=== PATIENT | male | born 1975 | race Caucasian/White ===

== ENCOUNTER 2018-02-14 10:21 | Observation (INO) ==
[2018-02-14] MEDS ORDERED: ONDANSETRON 4 MG/2 ML INJECTION IVP ONE (10:45)
[2018-02-14] MEDS ORDERED: NS 1,000 ML IV ONE (10:45)
[2018-02-14] MEDS: SALINE FLUSH 10ml SYRINGE IVF PRN ×2 (10:46→12:52)
[2018-02-14] MEDS ORDERED: MORPHINE SULFATE 4mg INJECTION IVP ONE (10:47)
--- NOTE | 2018-02-14 11:22 | Emergency Department Report ---
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 Pt has had several weeks of LUQ abdominal 'flickering'. Two days ago, this was accompanied by nausea, vomiting, and several bouts of diarrhea (loose stools). Pt has never had these sx before. Has not tried anything to make them better or worse. While at work today, pt looked so poorly that he was sent home with a co-worker. The co- worker brought him to the ER for evaluation. Pt is an IDDM. He has a PMHx s/f alcoholism (admits to 6 beers daily) and methamphetamine abuse. MD complaint: nausea, vomiting, diarrhea Onset (ago): day(s) Description of Vomiting: food contents Description of Diarrhea: other (loose stools) Associated Abdominal Pain: No Severity: moderate Quality: cramping Consistency: constant Relieving factors: none Exacerbating factors: eating Context: alcohol abuse Associated symptoms: headaches (Intermittently) - Related Data Home Medications Medication Instructions Recorded Confirmed Citalopram [Celexa] 20 mg PO DAILY 07/19/17 02/14/18 HydrOXYzine [Atarax] 25 mg PO TID 07/19/17 02/14/18 Insulin Detemir [Levemir Flextouch] 20 unit SQ HS 07/19/17 02/14/18 Lisinopril [Prinivil] 40 mg PO DAILY 07/19/17 02/14/18 Propranolol HCl 20 mg PO BID 07/19/17 02/14/18 Allergies Allergy/AdvReac Type Severity Reaction Status Date / Time No Known Allergies Allergy Verified 02/14/18 14:18 Review of Systems All systems: reviewed and negative except as stated Gastrointestinal: Reports: as per HPI, nausea, vomiting, diarrhea, other (' flickering' in LUQ). Denies: abdominal pain, constipation, hematemesis, melena , hematochezia Neurological: Reports: as per HPI, headache. Denies: weakness, numbness, paresthesias, confusion, abnormal gait, vertigo PFSH Patient Stated Medical History Hypertension Yes Diabetes Mellitus Type 1 Yes Substance Use Disorder Yes: previous meth - Social History Smoking status: Never smoker Substance use type: does not use Alcohol intake frequency: 3 or more drinks per day Physical Exam - Limitations Limitations: no limitations - General General appearance: alert, in no apparent distress, obese - Head Head exam: atraumatic, normocephalic, normal inspection - Eye Eye exam: Present: PERRL, EOMI, scleral icterus, conjunctival injection. Absent : normal appearance, nystagmus, miosis, mydriasis, periorbital swelling, periorbital tenderness - ENT ENT exam: Present: normal exam, normal oropharynx, mucous membranes moist, normal external ear exam - Neck Neck exam: Present: normal inspection, full ROM, trachea midline. Absent: tenderness, lymphadenopathy - Chest Chest inspection: Present: normal inspection, symmetric chest wall rise. Absent : tenderness, rash - Respiratory Respiratory exam: Present: normal lung sounds bilaterally. Absent: respiratory distress, wheezes, stridor, prolonged expiratory phase, crackles - Cardiovascular Cardiovascular exam: Present: regular rate, normal rhythm, normal heart sounds. Absent: rubs, gallop, clicks - Abdominal Exam Abdominal exam: Present: soft, hyperactive bowel sounds. Absent: distention, tenderness, guarding, rebound, rigidity - Extremities Exam Extremities exam: Present: normal inspection, full ROM, normal capillary refill. Absent: tenderness, pedal edema - Skin Skin exam: Present: warm, dry, intact. Absent: rash - Neurological Exam Neurological exam: Present: alert, oriented X3, CN II-XII intact, normal gait, reflexes normal - Psychiatric Psychiatric exam: Present: flat affect Course - Consultations Consultation #1: hospitalist: Time: 12:37 Vital Signs Temperature 99.8 F 02/14/18 10:26 Pulse Rate 106 H 02/14/18 10:26 Respiratory Rate 20 02/14/18 10:26 Blood Pressure 212/130 H 02/14/18 10:26 Pulse Oximetry 94 02/14/18 10:26 Temperature 100.1 F 02/14/18 13:45 Pulse Rate 111 H 02/14/18 13:45 Respiratory Rate 16 02/14/18 14:57 Blood Pressure 185/119 H 02/14/18 13:45 Pulse Oximetry 96 02/14/18 14:57 Nausea/Vomiting/Diarrhea - MDM Narrative Medical decision making narrative: Pt with chronic alcoholism, elevated lipase, alcoholic hepatitis, steatohepatitis, and LUQ abdominal pain. Discussed case with hospitalist; concern for acute vs chronic pancreatitis or alcoholic hepatitis. Hospitalist will admit for obs and bowel rest. - Differential Diagnosis Likely: traveler's diarrhea, food poisoning, gastroenteritis, drug-induced nausea and vomiting, dehydration - Medical Records Attestation: I reviewed the patient's medical records. - Lab Data Attestation: I reviewed the patient's lab results. Result diagrams: 02/14/18 11:04 02/14/18 11:04 Lab Results 02/14/18 02/14/18 02/14/18 Range/Units 11:04 11:04 11:58 WBC 4.4 L (4.5-11.0) T/MM3 RBC 5.07 (4.50-5.90) M/MM3 Hgb 16.2 (13.5-17.5) GM/DL Hct 45.9 (41-53) % MCV 90.5 (80-100) UM3 MCH 32.0 (26-34) UUG MCHC 35.3 (31-37) GM/DL RDW Std Deviation 41.3 (36.9-50.2) FL Plt Count 64 L (130-400) T/MM3 MPV 11.6 (9.4-12.4) UM3 Immature Gran % (Auto) 0.0 (0.0-0.5) % Neut % (Auto) 76.6 H (33-66) % Lymph % (Auto) 17.7 L (23-45) % [place] % (Auto) 4.8 (0-9.0) % Eos % (Auto) 0.2 (0-4) % Baso % (Auto) 0.7 (0-2) % Neut # (Auto) 3.4 (1.8-7.7) T/MM3 Lymph # (Auto) 0.8 L (1-4.8) T/MM3 [place] # (Auto) 0.2 (0-0.8) T/MM3 Eos # (Auto) 0.0 (0-0.5) T/MM3 Baso # (Auto) 0.0 (0-0.2) T/MM3 Abs Immat Gran (auto) 0.00 (0.00-0.03) T/MM3 VBG pH (7.310-7.410) VBG pCO2 (40.0-52.0) MMHG VBG pO2 (40.0-52.0) MMHG VBG HCO3 (22.0-26.0) MEQ/L VBG Total CO2 (22.0-32.0) MEQ/L VBG O2 Saturation (0.0-100.0) % VBG Base Excess (-5.0-5.0) MMOL/L Turbidity < 20 (0-20) Sodium 143 (134-144) MEQ/L Potassium 3.7 (3.6-5) MEQ/L Chloride 101 (98-107) MEQ/L Carbon Dioxide 23 (22-30) MEQ/L Anion Gap 19 H (5-15) meq/L BUN 9.0 (9-20) MG/DL Creatinine 0.6 L (0.8-1.5) mg/dL GFR Calculation 146 BUN/Creatinine Ratio 15 (6-26) RATIO Glucose 231 H (75-110) MG/DL Calculated Osmolality 281 H (261-280) MOSM/KG Calcium 9.5 (8.4-10.2) MG/DL Total Bilirubin 1.30 (0.20-1.30) MG/DL Icterus Index < 2 (0-7) AST 454 H (17-59) U/L ALT 187 H (1-50) U/L Alkaline Phosphatase 384 H (38-126) U/L Total Protein 8.8 H (6.3-8.2) g/dL Albumin 4.8 (3.5-5.0) g/dL Globulin 4.0 H (2.4-3.6) G/DL Albumin/Globulin Ratio 1.2 (1.1-2.2) RATIO Lipase 431 H (23-300) U/L Specimen Hemolysis < 15 (0-25) Ur Collection Type Urine Color (YELLOW) Urine Clarity Urine pH (5.0-8.0) Ur Specific [place] (1.015-1.025) Urine Protein (NEGATIVE) Urine Glucose (UA) (NEGATIVE) Urine Ketones (NEGATIVE) Urine Occult Blood (NEGATIVE) Urine Nitrate (NEGATIVE) Urine Bilirubin (NEGATIVE) Urine Urobilinogen (NORMAL) EU/DL Ur Leukocyte Esterase (NEGATIVE) Urinalysis Comment Urine Opiates Screen ng/mL Ur Oxycodone Screen ng/mL Urine Methadone Screen ng/mL Ur Propoxyphene Screen ng/mL Ur Barbiturates Screen ng/mL U Tricyclic Antidepress ng/mL Ur Phencyclidine Scrn ng/mL Ur Amphetamines Screen ng/mL U Methamphetamines Scrn ng/mL U Benzodiazepines Scrn ng/mL Urine Cocaine Screen ng/mL U Cannabinoids Screen ng/mL B-Hydroxybutyrate 0.00 (0-0.6) mmol/L 02/14/18 02/14/18 02/14/18 Range/Units 12:00 12:00 12:00 WBC (4.5-11.0) T/MM3 RBC (4.50-5.90) M/MM3 Hgb (13.5-17.5) GM/DL Hct (41-53) % MCV (80-100) UM3 MCH (26-34) UUG MCHC (31-37) GM/DL RDW Std Deviation (36.9-50.2) FL Plt Count (130-400) T/MM3 MPV (9.4-12.4) UM3 Immature Gran % (Auto) (0.0-0.5) % Neut % (Auto) (33-66) % Lymph % (Auto) (23-45) % [place] % (Auto) (0-9.0) % Eos % (Auto) (0-4) % Baso % (Auto) (0-2) % Neut # (Auto) (1.8-7.7) T/MM3 Lymph # (Auto) (1-4.8) T/MM3 [place] # (Auto) (0-0.8) T/MM3 Eos # (Auto) (0-0.5) T/MM3 Baso # (Auto) (0-0.2) T/MM3 Abs Immat Gran (auto) (0.00-0.03) T/MM3 VBG pH 7.436 H (7.310-7.410) VBG pCO2 35.2 L (40.0-52.0) MMHG VBG pO2 85.2 H (40.0-52.0) MMHG VBG HCO3 23.7 (22.0-26.0) MEQ/L VBG Total CO2 24.8 (22.0-32.0) MEQ/L VBG O2 Saturation 96.8 (0.0-100.0) % VBG Base Excess 0.0 (-5.0-5.0) MMOL/L Turbidity (0-20) Sodium (134-144) MEQ/L Potassium (3.6-5) MEQ/L Chloride (98-107) MEQ/L Carbon Dioxide (22-30) MEQ/L Anion Gap (5-15) meq/L BUN (9-20) MG/DL Creatinine (0.8-1.5) mg/dL GFR Calculation BUN/Creatinine Ratio (6-26) RATIO Glucose (75-110) MG/DL Calculated Osmolality (261-280) MOSM/KG Calcium (8.4-10.2) MG/DL Total Bilirubin (0.20-1.30) MG/DL Icterus Index (0-7) AST (17-59) U/L ALT (1-50) U/L Alkaline Phosphatase (38-126) U/L Total Protein (6.3-8.2) g/dL Albumin (3.5-5.0) g/dL Globulin (2.4-3.6) G/DL Albumin/Globulin Ratio (1.1-2.2) RATIO Lipase (23-300) U/L Specimen Hemolysis (0-25) Ur Collection Type Urine, void-cc/notcc Urine Color Yellow (YELLOW) Urine Clarity Clear Urine pH 7.0 (5.0-8.0) Ur Specific [place] 1.010 L (1.015-1.025) Urine Protein Trace A (NEGATIVE) Urine Glucose (UA) Negative (NEGATIVE) Urine Ketones Negative (NEGATIVE) Urine Occult Blood Negative (NEGATIVE) Urine Nitrate Negative (NEGATIVE) Urine Bilirubin Negative (NEGATIVE) Urine Urobilinogen 0.2 (NORMAL) EU/DL Ur Leukocyte Esterase Negative (NEGATIVE) Urinalysis Comment Microscopic not ind. Urine Opiates Screen Negative ng/mL Ur Oxycodone Screen Negative ng/mL Urine Methadone Screen Negative ng/mL Ur Propoxyphene Screen Negative ng/mL Ur Barbiturates Screen Negative ng/mL U Tricyclic Antidepress Negative ng/mL Ur Phencyclidine Scrn Negative ng/mL Ur Amphetamines Screen Negative ng/mL U Methamphetamines Scrn Negative ng/mL U Benzodiazepines Scrn Negative ng/mL Urine Cocaine Screen Negative ng/mL U Cannabinoids Screen Negative ng/mL B-Hydroxybutyrate (0-0.6) mmol/L - Radiology Data Attestation: I reviewed the patient's radiology results. Acute abdomen: IMPRESSION: 1. No acute cardiopulmonary abnormality. 2. No evidence of acute obstruction or free air. CT abd/pelv: Impression: 1. No acute disease process seen in the abdomen or pelvis. 2. Hepatic steatosis. - EKG Data EKG #1 EKG attestation: Yes: I reviewed and interpreted this EKG. EKG shows normal: sinus rhythm, axis, intervals, QRS complexes, ST-T waves Rate: tachycardia Interpretation: normal EKG Disposition Clinical Impression: Steatohepatitis, alcoholic, LUQ abdominal pain, Elevated lipase Abdominal pain Qualifiers: Abdominal location: left upper quadrant Qualified Code(s): R10.12 - Left upper quadrant pain Disposition: To [facility] Condition: Improved - Seen By: physician
--- NOTE | 2018-02-14 11:28 | XRay Report ---
Indication: N/V/D PROCEDURE: PA view of the chest with supine and upright AP views of the abdomen Encounter: Initial Comparison: None FINDINGS: The lungs are clear. There is no abnormal airspace opacity, pleural effusion or pneumothorax identified. The heart size, pulmonary vasculature and mediastinum are within normal limits. There is no free air on the upright view. The bowel gas pattern is nonobstructive and nonspecific. Gas is seen in nondilated small and large bowel to the level of the rectum. Moderate stool is seen throughout the colon. The bony structures are grossly unremarkable. IMPRESSION: 1. No acute cardiopulmonary abnormality. 2. No evidence of acute obstruction or free air. .
[2018-02-14] MEDS ORDERED: IOHEXOL 300mg/ml 100ml INJECTION ONE (11:36)
[2018-02-14] MEDS ORDERED: SALINE FLUSH 10ml SYRINGE ONE (11:37)
--- NOTE | 2018-02-14 12:02 | CT Scan Report ---
Indication: elevated lipase, hepatitis, Left colonic pain ?divertic PROCEDURE: CT abdomen pelvis w con: Encounter: Initial Comparison: None Technique: Axial CT images were performed through the abdomen and pelvis after the administration of intravenous contrast. Coronal and sagittal two-dimensional reformats. Automated Exposure Control and Iterative Reconstruction dose reducing techniques were utilized. Contrast: Omnipaque 300 100 mL Findings: The lung bases are clear. The liver is diffusely fatty infiltrated without enhancing mass or bile duct dilatation. The gallbladder is unremarkable. The spleen shows a small rounded calcification at the medial superior aspect measuring 1 cm in size which could be due to old trauma or granuloma. The pancreas is normal. The adrenal glands and kidneys are normal. Bladder is normal. No abdominal or pelvic lymphadenopathy. Prostate and rectum are normal. No free fluid. No evidence of diverticulosis or diverticulitis. No bowel obstruction. The appendix is gas-filled and normal. Bone windows show bilateral L5 spondylolysis without spondylolisthesis. Impression: 1. No acute disease process seen in the abdomen or pelvis. 2. Hepatic steatosis. .
[2018-02-14] MEDS ORDERED: INSULIN REGULAR, HUMAN 100 UNIT/ML INJECTION IVP ONE (12:34)
[2018-02-14] MEDS ORDERED: SODIUM CHLORIDE CONC 154 MEQ in D10W 1,000 ML IV SCH (12:45)
--- NOTE | 2018-02-14 13:29 | History & Physical Report ---
History of Present Illness Date: 02/14/18 Chief complaint: nausea, vomiting, diarrhea HPI: Efrain Chand is a 42-year-old male who presented to [facility] emergency room today, 02/14/18, for evaluation of 3 days of nausea, vomiting and copious watery diarrhea. He was initially seen at [facility] where he was sent to the ED for further evaluation. He is accompanied by his friend, Zachary, who translates for the patient as he is Stateless speaking. He also complains of left sided abdominal pain, dizziness, generalized weakness and inability to keep anything down at home. He denies any known fevers, chills, chest pain, shortness of breath, dysuria, hematuria or syncope. Upon arrival to the ED, he was noted to have a low grade temperature at 99.8, tachycardia (HR 105) and elevated blood pressure (187/118). He has a known history of hypertension as well as insulin dependent diabetes but denies any current home medications for his hypertension. Labs were obtained and revealed leukopenia (WBC 4.4), thrombocytopenia (Plt 64) and hyperglycemia (Glu 231). Liver enzymes were also elevated (AST 454, ALT 187). He has a history of daily alcohol consumption of 6- 8 beers a day during the week and more on the weekends. History of DTs with alcohol withdrawal in the past though denies a history of seizures with alcohol withdrawal. He also admits to a past history of drug abuse including cocaine and methamphetamine. Review of prior medical records and labs indicates that his abnormal lab values are chronic. Lipase was slightly elevated at 431. CT abdomen/pelvis was obtained and revealed hepatic steatosis with no acute changes. Due to his nausea, vomiting, diarrhea and abdominal pain with elevated liver enzymes, Dr. Adams was contacted and he was admitted into observation status for further evaluation, closely monitoring, IV hydration and treatment. His length of stay is not expected to exceed more than 2 over nights. Review of Systems All systems PM: 10-point ROS was reviewed, no additional remarkable complaints except Review of systems: Limited due to language barrier. - Constitutional Constitutional: Present: malaise, weakness. Absent: chills, fatigue, fever(s) - EENMT Eyes: Absent: blurry vision, change in vision, photophobia Ears: Absent: ear pain Balance: Absent: vertigo, falling to one side Nose: Absent: nosebleeds Mouth/Throat: Present: dry mouth. Absent: sore throat, changes in swallowing - Cardiovascular Cardiovascular: Absent: chest pain, palpitations, syncope, dyspnea on exertion, orthopnea, edema Rhythm: Present: regular rhythm Vascular: Absent: pallor of an extermity, pedal edema, unilateral swelling - Respiratory Respiratory: Absent: cough, dyspnea, hemoptysis, dyspnea on exertion, wheezing - Gastrointestinal Gastrointestinal: Present: abdominal pain (left side), change in bowel habits, diarrhea (copious, watery x 2 today), nausea, vomiting. Absent: hematemesis, hematochezia, melena - Genitourinary Genitourinary: Absent: dysuria, flank pain, hematuria - Musculoskeletal Musculoskeletal: Present: muscle weakness. Absent: back pain, deformity - Integumentary/Breasts Integumentary: Absent: rash - Neurological Neurological: Present: dizziness, weakness. Absent: abnormal gait, confusion, convulsions, focal weakness - Psychiatric Psychiatric: Present: other (Alcohol abuse, polysubstance abuse) - Endocrine Endocrine: Absent: flushing, palpitations - Hematologic/Lymphatic Hematologic/Lymphatic: Absent: easy bruising - Allergic/Immunologic Allergic/Immunologic: Absent: seasonal rhinorrhea Past Medical History Medical History Updates: Hypertension. Insulin dependent diabetes. Alcohol dependency and abuse. Polysubstance abuse. Surgical History: Right lower leg repair. Family History: Patient denies any significant family history. Both his mother (age 68) and father (age 80) are alive and reportedly healthy. 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 Medications Home Medications Medication Instructions Recorded Confirmed Type Citalopram [Celexa] 20 mg PO DAILY 07/19/17 02/14/18 History HydrOXYzine [Atarax] 25 mg PO TID 07/19/17 02/14/18 History Insulin Detemir [Levemir Flextouch] 20 unit SQ HS 07/19/17 02/14/18 History Lisinopril [Prinivil] 40 mg PO DAILY 07/19/17 02/14/18 History Propranolol HCl 20 mg PO BID 07/19/17 02/14/18 History Allergies Allergy/AdvReac Type Severity Reaction Status Date / Time No Known Allergies Allergy Verified 02/14/18 14:18 Exam Vital Signs: Temperature 99.8 F 02/14/18 10:26 Pulse Rate 112 H 02/14/18 12:45 Respiratory Rate 28 H 02/14/18 12:45 Blood Pressure 188/108 H 02/14/18 12:30 Pulse Oximetry 96 02/14/18 12:45 Telemetry Rhythm: Sinus Tachycardia Comments: Patient is seen while awaiting admission in ED. He is accompanied by his friend who translates. Nursing present on exam. - Constitutional Present: no acute distress, well nourished, well developed, obese, cooperative - Routine HEENT Exam Head: Present: normocephalic, atraumatic Eye: Present: PERRL ENT: Present: mucous membranes dry, oropharynx clear - Routine Neck Exam Present: supple, full ROM, trachea midline - Routine Chest/Breast/Axilla Exam Chest wall: Absent: pacemaker - Routine Respiratory Exam Present: CTA bilaterally. Absent: respiratory distress, wheezes - Routine Cardiovascular Exam Present: S1, S2, tachycardia - Routine Abdominal Exam Present: soft, normoactive bowel sounds, non tender, distended. Absent: rebound , guarding - Routine Extremities Exam Present: no edema, full ROM, pulses intact - Routine Back/Spine/Pelvis Exam Back/Spine: Present: full ROM. Absent: vertebral tenderness - Routine Skin Exam Present: dry, warm - Routine Neurological Exam Present: alert, oriented X3, moving all extremities, hearing grossly intact, normal speech - Routine Psychiatric Exam Present: cooperative Results - Labs CBC & Chem 7: 02/14/18 11:04 02/14/18 11:04 Assessment and Plan Assessment and Plan: Assessment: Abdominal pain with nausea, vomiting and diarrhea, acute. Leukopenia, present on admission. Thrombocytopenia, present on admission. Elevated liver enzymes, present on admission. Hepatic steatosis. Hypertension, uncontrolled. Insulin dependent diabetes. Alcohol dependency and abuse. Polysubstance abuse. Plan - 02/14/18: Admit to observation status under the care of Dr. Adams. Patient was given 1L NS in ED. Continue NS with KCL at 125cc/hr for hydration. Given report of copious watery diarrhea without sick contact or recent travel, will check GI panel. Clear liquid diet as tolerated. Zofran as needed for nausea/vomiting. Monitor closely for signs of alcohol withdrawal. Serax 15mg Q4H PRN as well as Ativan as needed for withdrawal symptoms. Initiate folate and thiamine give alcohol history. Continue home Levemir 20 units QHS. Sliding scale insulin as needed. Monitor BGMs closely. Continue home Propranolol 20mg BID. Monitor blood pressure and heart rate closely on telemetry. Leukopenia and thrombocytopenia appear to be chronic per prior labs. Suspect secondary to liver disease from alcohol. Will check acute hepatitis panel now. SCDs for DVT prophylaxis. Upon discharge, patient's care will be returned to his PCP at [facility]. Patient requests to be a FULL CODE. DVT Prophylaxis: SCD's GI Prophylaxis: Protonix Resuscitation Status: Full Code - Time spent with patient Time with patient PN: 50 minutes - Physician Narrative Physician: Ketan Adams MD Narrative: Date: 02/14/18 Time: 1610 Have independently interviewed and examined pt. Chart reviewed. Case discussed with ED Physician and my PA. Care plan developed with my supervision; agree with above. Presents to ED secondary to increased n/v/d x several days. More weak and unsteady. Notes pain to left lower quadrant. Does chronically use ETOH. Placed in OBS for hydration and nausea control. Lungs: clear bilaterally, no crackles or wheezes. CV: tachy, regular AB: soft obese ND, mild tenderness without rebound, BS decreased Plan: OBS. IVF. Zofran prn nausea. IV thiamine and folic acid due to chronic ETOH use. IV Protonix for GI protection from possible ETOH gastritis. Lorazepam and Serax prn ETOH withdraw. Monitor lab. Hospital Course Summary Disclaimer: The visit summary below is not to be considered part of the above Progress Note. Hospital Course: Plan - 02/14/18: Admit to observation status under the care of Dr. Adams. Patient was given 1L NS in ED. Continue NS with KCL at 125cc/hr for hydration. Given report of copious watery diarrhea without sick contact or recent travel, will check GI panel. Clear liquid diet as tolerated. Zofran as needed for nausea/vomiting. Monitor closely for signs of alcohol withdrawal. Serax 15mg Q4H PRN as well as Ativan as needed for withdrawal symptoms. Initiate folate and thiamine give alcohol history. Continue home Levemir 20 units QHS. Sliding scale insulin as needed. Monitor BGMs closely. Continue home Propranolol 20mg BID. Monitor blood pressure and heart rate closely on telemetry. Leukopenia and thrombocytopenia appear to be chronic per prior labs. Suspect secondary to liver disease from alcohol. Will check acute hepatitis panel now. SCDs for DVT prophylaxis. Upon discharge, patient's care will be returned to his PCP at [facility]. Patient requests to be a FULL CODE.
[2018-02-14 13:46] VITALS: BMI 33.6
[2018-02-14] MEDS ORDERED: GLUCOSE ORAL GEL 40% 37.5gm PO PRN (13:54)
[2018-02-14] MEDS ORDERED: INSULIN ASPART 100unit/ml INJECTION SQ PRN (13:54)
[2018-02-14] MEDS ORDERED: ONDANSETRON 4 MG/2 ML INJECTION IVP PRN (13:54)
[2018-02-14] MEDS: NS with KCL 20 mEq 1,000 ML IV SCH ×2 (14:53→23:46)
[2018-02-14] MEDS: FOLIC ACID 5 MG/ML INJECTION IVP SCH (14:54)
[2018-02-14] MEDS: PANTOPRAZOLE 40 MG INJECTION IVP SCH (14:54)
[2018-02-14] MEDS: THIAMINE 100 MG in NS 50 ML IV SCH (14:57)
[2018-02-14] MEDS: OXAZEPAM 15 MG CAPSULE PO PRN (15:10)
[2018-02-14] MEDS ORDERED: INSULIN DETEMIR 100unit/ml INJECTION SQ SCH (21:00)
[2018-02-14] MEDS: PROPRANOLOL 20 MG TABLET PO SCH (21:20)
[2018-02-15 04:57] VITALS: RESP 18
[2018-02-15] MEDS: OXAZEPAM 15 MG CAPSULE PO PRN ×2 (05:06→15:51)
[2018-02-15] MEDS: NS with KCL 20 mEq 1,000 ML IV SCH (07:51)
[2018-02-15 08:39] VITALS: O2SAT 96
[2018-02-15] MEDS ORDERED: CITALOPRAM 20 MG TABLET PO SCH (09:00)
[2018-02-15] MEDS: FOLIC ACID 5 MG/ML INJECTION IVP SCH (10:10)
[2018-02-15] MEDS: PANTOPRAZOLE 40 MG INJECTION IVP SCH (10:11)
[2018-02-15] MEDS: PROPRANOLOL 20 MG TABLET PO SCH (10:12)
[2018-02-15] MEDS: THIAMINE 100 MG in NS 50 ML IV SCH (10:12)
--- NOTE | 2018-02-15 10:20 | Progress Note ---
- Date 02/15/18 Subjective: F/U: abdominal pain, nausea, vomiting. Efrain is seen while sitting up in bed with multiple family members at the bedside. Nursing is present and assists with translations. He reports that he continues to have mild left lower quadrant pain. He denies any current nausea, vomiting or diarrhea. He has been able to tolerate liquids well and has remained afebrile. Labs revealed slight decrease in WBC (WBC 3.8) with persistent thrombocytopenia (Plt 53). Mild hypokalemia noted (K 3.5). Slight improvement in liver enzymes, though they remain elevated as does the lipase at 454. Increase in total bilirubin at 2.70. Objective Vital signs: Temperature 97.9 F 02/15/18 07:21 Pulse Rate 64 02/15/18 07:21 Respiratory Rate 18 02/15/18 07:21 Blood Pressure 148/91 H 02/15/18 07:21 Pulse Oximetry 96 02/15/18 08:38 Rhythm: Normal Sinus Rhythm Height/Weight/BMI: Height 5 ft 6 in Weight 208 lb 5.389 oz Body Mass Index 33.6 Comments: Sitting up in bed with family at the bedside. Nursing translates. - Constitutional Present: no acute distress, well nourished, well developed, obese, cooperative - Routine HEENT Exam Head: Present: normocephalic, atraumatic Eye: Present: PERRL ENT: Present: mucous membranes moist, oropharynx clear - Routine Respiratory Exam Present: CTA bilaterally. Absent: respiratory distress, wheezes - Routine Cardiovascular Exam Present: RRR, S1, S2 - Routine Abdominal Exam Present: soft, distended. Absent: rebound, guarding Comments: Mild left lower quadrant tenderness with palpation. - McBurney's and - Barry's sign. Hypoactive bowel sounds. - Routine Extremities Exam Present: full ROM, pulses intact - Routine Back/Spine/Pelvis Exam Back/Spine: Present: full ROM. Absent: vertebral tenderness - Routine Musculoskeletal Exam Musculoskeletal: Present: moving extremities well - Routine Skin Exam Present: intact, dry, warm Comments: Afebrile. - Routine Neurological Exam Present: alert, moving all extremities, hearing grossly intact, normal speech - Routine Lymphatic Exam Lymphatic: Absent: lymphedema - Routine Psychiatric Exam Present: cooperative Results - Labs CBC & Chem 7: 02/15/18 04:33 02/15/18 04:33 Assessment and Plan Assessment and Plan: Assessment Abdominal pain with nausea, vomiting and diarrhea - resolved Hypokalemia (Not POA) Leukopenia, present on admission. Thrombocytopenia, present on admission. Elevated liver enzymes, present on admission. Hepatic steatosis. Hypertension, uncontrolled. Insulin dependent diabetes. Alcohol dependency and abuse. Hx Polysubstance abuse. Plan Continue to have mild LLQ abdominal pain. Tolerating liquid diet without nausea or vomiting. Lipase remains elevated at 454. Total bilirubin elevated at 2.70. No diarrhea since admission. Awaiting stool culture. Continue NS with KCL at 125cc/hr for hydration. Will give KCl 20 mEq po x 1 dose now for hypokalemia. Diarrhea improved. Given report of copious watery diarrhea prior to admission will check GI panel - pending. Liquid diet as tolerated. Zofran as needed for nausea/vomiting. Patient denies alcohol withdrawal. Continue Serax 15mg Q4H PRN as well as Ativan as needed for withdrawal symptoms. Continue folate and thiamine give alcohol history. Continue home Levemir 20 units QHS. Sliding scale insulin as needed. Monitor BGMs closely. Blood sugars controlled. Continue home Propranolol 20mg BID. Monitor blood pressure and heart rate closely on telemetry. Leukopenia and thrombocytopenia appear to be chronic per prior labs. Suspect secondary to liver disease from alcohol. Acute hepatitis panel pending. SCDs for DVT prophylaxis. DVT Prophylaxis: SCD's GI Prophylaxis: Protonix Resuscitation Status: Full Code - Time spent with patient Time with patient PN: 30 minutes - Physician Narrative Physician: Ketan Adams MD Narrative: Date: 02/15/18 Time: 1440 Have independently interviewed and examined pt with spanish translator. Chart reviewed. Case discussed with CM and my PUBLIC AFFAIRS MANAGER. Care plan developed with my supervision; agree with above. Doing better today. Less ab pain and nausea. Not having diarrhea (not able to run GI panel as stool not liquid). Breathing well. Does feel tired and weak. Slightly shaky. Lungs: clear CV: regular Ab: soft nt MSE: awake alert Plan: Medically stable for discharge to home. Stress importance of not using alcohol. Encouraged intake of liquids. Will have Serax 15mg available every 4 hours for symptoms of withdrawal - advised NOT to use alcohol with Serax. F/U with [facility] in [facility] week. See orders for details. Hospital Course Summary Disclaimer: The visit summary below is not to be considered part of the above Progress Note. Hospital Course: 02/14/18 Admit to observation status under the care of Dr. Adams. Patient was given 1L NS in ED. Continue NS with KCL at 125cc/hr for hydration. Given report of copious watery diarrhea without sick contact or recent travel, will check GI panel. Clear liquid diet as tolerated. Zofran as needed for nausea/vomiting. Monitor closely for signs of alcohol withdrawal. Serax 15mg Q4H PRN as well as Ativan as needed for withdrawal symptoms. Initiate folate and thiamine give alcohol history. Continue home Levemir 20 units QHS. Sliding scale insulin as needed. Monitor BGMs closely. Continue home Propranolol 20mg BID. Monitor blood pressure and heart rate closely on telemetry. Leukopenia and thrombocytopenia appear to be chronic per prior labs. Suspect secondary to liver disease from alcohol. Will check acute hepatitis panel now. SCDs for DVT prophylaxis. Upon discharge, patient's care will be returned to [facility]. Patient requests to be a FULL CODE. 02/15/18 Continue to have mild LLQ abdominal pain. Tolerating liquid diet without nausea or vomiting. Lipase remains elevated at 454. Total bilirubin elevated at 2.70. No diarrhea since admission. Not able to run GI panel as stool not liquid. Continue NS with KCL at 125cc/hr for hydration. Will give KCl 20 mEq po x 1 dose now for hypokalemia. Liquid diet as tolerated. Zofran as needed for nausea/vomiting. Patient denies alcohol withdrawal. Continue Serax 15mg Q4H PRN as well as Ativan as needed for withdrawal symptoms. Leukopenia and thrombocytopenia appear to be chronic per prior labs. Suspect secondary to liver disease from alcohol. Acute hepatitis panel pending. Medically stable for discharge to home. Stress importance of not using alcohol. Encouraged intake of liquids. Will have Serax 15mg available every 4 hours for symptoms of withdrawal - advised NOT to use alcohol with Serax. Encourage AA to help with alcohol avoidance. F/U with [facility] in 1 week. See orders for details.
--- NOTE | 2018-02-15 15:27 | Discharge Summary ---
Discharge Information Date of admission: 02/14/18 12:52 Anticipated date of discharge: 02/15/18 Attending Physician: Ketan Adams MD Primary care physician: Mirna Mcguire Discharge diagnosis Abdominal pain with nausea, vomiting and diarrhea - resolved Associated conditions and complications Hypokalemia (Not POA) Leukopenia, present on admission Thrombocytopenia, present on admission Elevated liver enzymes, present on admission Hepatic steatosis Hypertension, uncontrolled Insulin dependent diabetes Alcohol dependency and abuse Hx Polysubstance abuse Obesity with BMI 33.6 - Laboratory Labs: Admit Lab 02/14/18 11:04 WBC 4.4 L Hgb 16.2 Hct 45.9 MCV 90.5 Plt Count 64 L Neut % (Auto) 76.6 H Lymph % (Auto) 17.7 L Warrick % (Auto) 4.8 Eos % (Auto) 0.2 Baso % (Auto) 0.7 Admit Lab 02/14/18 02/14/18 11:04 11:04 Sodium 143 Potassium 3.7 Chloride 101 Carbon Dioxide 23 Anion Gap 19 H BUN 9.0 Creatinine 0.6 L GFR Calculation 146 BUN/Creatinine Ratio 15 Glucose 231 H Calculated Osmolality 281 H Calcium 9.5 Magnesium 1.8 Total Bilirubin 1.30 Icterus Index < 2 AST 454 H ALT 187 H Alkaline Phosphatase 384 H Total Protein 8.8 H Albumin 4.8 Globulin 4.0 H Albumin/Globulin Ratio 1.2 Lipase 431 H Pending Lab 02/14/18 11:04 Hepatitis A IgM Ab Pending Hep Bs Antigen Pending Hep B Core IgM Ab Pending Hepatitis C Antibody Pending 02/15/18 04:33 02/15/18 04:33 History of Present Illness HPI: Efrain Chand is a 42-year-old male who [place] [facility] [place] today, 02/14/18, for evaluation of 3 days of nausea, vomiting and copious watery diarrhea. He was initially seen at [facility] where he was sent to the ED for further evaluation. He is accompanied by his friend, Zachary, who translates for the patient as he is Montserratian speaking. He also complains of left sided abdominal pain, dizziness, generalized weakness and inability to keep anything down at home. He denies any known fevers, chills, chest pain, shortness of breath, dysuria, hematuria or syncope. Upon arrival to the ED, he was noted to have a low grade temperature at 99.8, tachycardia (HR 105) and elevated blood pressure (187/118). He has a known history of hypertension as well as insulin dependent diabetes but denies any current home medications for his hypertension. Labs were obtained and revealed leukopenia (WBC 4.4), thrombocytopenia (Plt 64) and hyperglycemia (Glu 231). Liver enzymes were also elevated (AST 454, ALT 187). He has a history of daily alcohol consumption of 6- 8 beers a day during the week and more on the weekends. History of DTs with alcohol withdrawal in the past though denies a history of seizures with alcohol withdrawal. He also admits to a past history of drug abuse including cocaine and methamphetamine. Review of prior medical records and labs indicates that his abnormal lab values are chronic. Lipase was slightly elevated at 431. CT abdomen/pelvis was obtained and revealed hepatic steatosis with no acute changes. Due to his nausea, vomiting, diarrhea and abdominal pain with elevated liver enzymes, Dr. Adams was contacted and he was admitted into observation status for further evaluation, closely monitoring, IV hydration and treatment. His length of stay is not expected to exceed more than 2 over nights. For complete details of the H&P refer to that document. Objective Vital signs: Temperature 97.9 F 02/15/18 07:21 Pulse Rate 64 02/15/18 07:21 Respiratory Rate 18 02/15/18 07:21 Blood Pressure 148/91 H 02/15/18 07:21 Pulse Oximetry 96 02/15/18 15:10 Rhythm: Normal Sinus Rhythm Height/Weight/BMI: Height 1.68 m Weight 94.5 kg Body Mass Index 33.6 Hospital Course This is a general summary of the patient's hospital course. For more details refer to the complete medical record. Hospital course: 02/14/18 Admit to observation status under the care of Dr. Adams. Patient was given 1L NS in ED. Continue NS with KCL at 125cc/hr for hydration. Given report of copious watery diarrhea without sick contact or recent travel, will check GI panel. Clear liquid diet as tolerated. Zofran as needed for nausea/vomiting. Monitor closely for signs of alcohol withdrawal. Serax 15mg Q4H PRN as well as Ativan as needed for withdrawal symptoms. Initiate folate and thiamine give alcohol history. Continue home Levemir 20 units QHS. Sliding scale insulin as needed. Monitor BGMs closely. Continue home Propranolol 20mg BID. Monitor blood pressure and heart rate closely on telemetry. Leukopenia and thrombocytopenia appear to be chronic per prior labs. Suspect secondary to liver disease from alcohol. Will check acute hepatitis panel now. SCDs for DVT prophylaxis. Upon discharge, patient's care will be returned to his PCP at [facility]. Patient requests to be a FULL CODE. 02/15/18 Continue to have mild LLQ abdominal pain. Tolerating liquid diet without nausea or vomiting. Lipase remains elevated at 454. Total bilirubin elevated at 2.70. No diarrhea since admission. Not able to run GI panel as stool not liquid. Continue NS with KCL at 125cc/hr for hydration. Will give KCl 20 mEq po x 1 dose now for hypokalemia. Liquid diet as tolerated. Zofran as needed for nausea/vomiting. Patient denies alcohol withdrawal. Continue Serax 15mg Q4H PRN as well as Ativan as needed for withdrawal symptoms. Leukopenia and thrombocytopenia appear to be chronic per prior labs. Suspect secondary to liver disease from alcohol. Acute hepatitis panel pending. Medically stable for discharge to home. Stress importance of not using alcohol. Encouraged intake of liquids. Will have Serax 15mg available every 4 hours for symptoms of withdrawal - advised NOT to use alcohol with Serax. Encourage AA to help with alcohol avoidance. F/U with [facility] in 1 week. See orders for details. Time spent with patient: discharge greater than 30 minutes Resuscitation Status: Full Code Discharge Plan - Discharge Disposition Discharge Date: 02/15/18 Disposition: Discharged Home, Self-Care *Condition: Improved Reason For Visit (Visit label in EMR): N/V - Discharge Medications *Discharge Medications: New Multivitamin [Multivitamins] 1 cap PO DAILY #1 bottle Oxazepam [Serax] 15 mg PO Q4H PRN #30 cap PRN Reason: Alcohol Withdrawl Symptoms Continue Insulin Detemir [Levemir Flextouch] 20 unit SQ HS Lisinopril [Prinivil] 40 mg PO DAILY Propranolol HCl 20 mg PO BID HydrOXYzine [Atarax] 25 mg PO TID Citalopram [Celexa] 20 mg PO DAILY - Discharge Packet/Instructions *Diet: 2000 KCAL ADA low sodium. Plent of water. Avoid alcohol. *Activity: As tolerated. May return to work on February 16, 2018. *Pain Management/Treatment: Continue prior pain medications *Wound Care: n/a Additional Instructions: May use Serax (oxazepam) 15mg every 4 hours as needed for alcohol withdrawal - feeling shaky, irriated. Do NOT drive, operate heavy equipment, climb ladders, or use power tools while using Serax. Do NOT drink alchol when using Serax. Recommend AA to help you avoid alcohol use. *Expected Signs/Symptoms: Decreasing nausea, improvement of appetite, normalization of bowel function. *Notify Physician if: Intractable nausea or vomiting. Severe shakiness. *During Business Hours Contact: [facility] *After Business Hours Contact: Call [facility] and have you primary care provider contacted. *Pending Lab/Results: Follow up w/Provider (Acute hepatitis profile) - Referrals/Follow Up *Referrals/Follow Up: Mirna Mcguire, [employer] [Advanced Practice Nurse] - 1 Week (Hospital f/u - ab pain , n/v (ETOH related). ) - Patient Handouts - Dismissal Complete Discharge Instructions are:: Complete Physician Narrative - Narrative Physician: Ketan Adams MD Attestation Narrative: Date: 02/15/18 Time: [id number] I have independently interviewed and examined patient prior to discharge. See my progress note for details. Medically stable for discharge to home.
[2018-02-15 15:48] VITALS: BP 180/110; PULSE 66; TEMP 97.7
== END 2018-02-15 16:45 | disposition home or self-care (01) ==
LOC: MED 10:21 → ED 10:21 → MED 13:40
PROVIDERS: ADMIT Hospitalist; ATTEND Hospitalist